=== PATIENT | female | born 1935 | race Two or more races ===

== ENCOUNTER 2022-08-31 07:01 | Inpatient (IN) | payer OTHER, MEDICAID ==
[2022-08-31] VITALS (30 sets, daily range): BP systolic 96–172; BP diastolic 29–163
[~2022-08-31] VITALS: Ht 152.4 cm; Wt 64.0 kg
[~2022-08-31 07:01] MED LIST: ACET-1080 PO; AMLO-483 PO; ASPI81CH59 PO; ATOR20TA PO; LEV50T PO; LIDO5DIS21 TOP; LISI20TA28 PO; MEMA1TAB5 PO
[2022-08-31] MEDS ORDERED: ceFAZolin 1GM/50ML 100 ML IV ONE (07:11)
[2022-08-31] MEDS ORDERED: LIDOCAINE 2% JELLY 11ml (GLYDO) ONE (07:49)
[2022-08-31] MEDS ORDERED: HYDROmorphone HCL 2 MG/ML VL/or syr ONE (08:00)
[2022-08-31] MEDS ORDERED: fentaNYL CITRATE 100 MCG/2 ML VL ONE ×2 (08:01→09:22)
[2022-08-31] MEDS ORDERED: MIDAZOLAM HCL 2MG/2ML 2ml VIAL (1mg/ml) ONE (08:01)
[2022-08-31] MEDS ORDERED: SUCCINYLCHOLINE CHLORIDE 20 MG/ML 10ML VIAL IV ONE (08:40)
[2022-08-31] MEDS ORDERED: PROPOFOL 10 MG/ML 20 ML IV ONE (09:16)
[2022-08-31] MEDS ORDERED: FLUMAZENIL 0.1 MG/ML INJ 10ML MDV IV ONE (09:22)
[2022-08-31] MEDS ORDERED: ROCURONIUM 10MG/ML 10ML VIAL IV ONE (09:23)
[2022-08-31] MEDS ORDERED: ONDANSETRON HCL 4 MG/2 ML VIAL IV PRN ×2 (10:30→12:30)
[2022-08-31] MEDS ORDERED: LABETALOL HCL 5 MG/ML 4ML SYRINGE IV PRN (10:30)
[2022-08-31] MEDS ORDERED: ePHEDrine SULFATE 50 MG/ML AMP IV PRN (10:30)
[2022-08-31] MEDS ORDERED: MORPHINE SULFATE 4 MG/ML SYR/VIAL IV PRN (10:30)
[2022-08-31] MEDS ORDERED: MIDAZOLAM HCL 2MG/2ML 2ml VIAL (1mg/ml) IV PRN (10:30)
[2022-08-31] MEDS ORDERED: HYDROmorphone HCL 2 MG/ML VL/or syr IV PRN (10:30)
[2022-08-31] MEDS ORDERED: GELATIN 1 SPONGE SIZE 100 TOP ONE (11:39)
[2022-08-31] MEDS ORDERED: SUGAMMADEX 200mg/2ml Vial (100MG/ML) IV ONE (11:56)
[2022-08-31] MEDS ORDERED: HYDROcodone-ACET 5/325MG TAB PO PRN (12:30)
[2022-08-31] MEDS ORDERED: NITROGLYCERIN 0.4 MG SL TAB SL PRN ×2 (12:30→16:15)
[2022-08-31] MEDS ORDERED: MORPHINE SULFATE INJ 2 MG/ml SYRG IV PRN ×3 (12:30→16:15)
[2022-08-31] MEDS ORDERED: HYDROcodone-ACET 10/325MG TAB PO ONE (15:25)
[2022-08-31] MEDS: D5W/SOD CHLO 0.9% 1,000 ML IV SCH (17:40)
[2022-08-31] MEDS: ceFAZolin 1GM/50ML 50 ML IV SCH ×2 (17:40→21:57)
[2022-08-31] MEDS: CYCLOBENZAPRINE HCL 10 MG TAB PO SCH ×2 (17:41→21:56)
[2022-08-31] MEDS: DOCUSATE SOD 100 MG CAP PO SCH (21:56)
[2022-09-01] VITALS (55 sets, daily range): BP systolic 82–130; BP diastolic 33–112
[2022-09-01] MEDS: D5W/SOD CHLO 0.9% 1,000 ML IV SCH ×3 (04:35→15:38)
[2022-09-01] MEDS: CYCLOBENZAPRINE HCL 10 MG TAB PO SCH ×3 (06:00→20:56)
[2022-09-01] MEDS: HYDROcodone-ACET 10/325MG TAB PO PRN ×2 (08:36→18:46)
[2022-09-01] MEDS: DOCUSATE SOD 100 MG CAP PO SCH ×2 (10:29→20:56)
[2022-09-01] MEDS: HYDROmorphone HCL 2 MG/ML VL/or syr IV PRN (14:14)
[2022-09-01 18:33] LABS: BUN/Creatinine Ratio 16.2 (10.0-20.0); Calcium 8.3 mg/dL (8.5-10.1); Potassium 4.5 mmol/L (3.5-5.1)
[2022-09-01 18:48] LABS: Basophils # (auto) 0 10 ^3/uL (0-0.2); Basophils % (auto) 0.1 % (0.0-2.0); Eosinophils # (auto) 0 10 ^3/uL (0-0.8); Hematocrit 27.5 % (36.0-46.0); Hemoglobin 9.1 g/dL (12.2-16.2); Lymphocytes # (auto) 1.1 10 ^3/uL (0.4-5.4); Lymphocytes % (auto) 8.1 % (10.0-50.0); Mean Corpuscular Hemoglobin 30.4 pg (28.0-32.0); Mean Corpuscular Volume 92.2 fL (80.0-100.0); Monocytes # (auto) 0.8 10 ^3/uL (0-1.3); Neutrophils # (auto) 11.9 10 ^3/uL (1.6-8.6); Neutrophils % (auto) 85.8 % (37.0-80.0); Red Blood Cells 2.98 10^6/uL (4.0-5.20); Red Cell Distribution Width 14.5 % (11.8-14.3); White Blood Cell 13.9 10^3/uL (4.4-10.8)
[2022-09-02 00:01] VITALS: BP 140/59
[2022-09-02] MEDS: HYDROcodone-ACET 10/325MG TAB PO PRN ×2 (02:51→17:05)
[2022-09-02] MEDS: D5W/SOD CHLO 0.9% 1,000 ML IV SCH ×2 (04:30→18:08)
[2022-09-02] MEDS: CYCLOBENZAPRINE HCL 10 MG TAB PO SCH ×4 (05:05→21:57)
[2022-09-02 08:00] VITALS: BP 124/55
[2022-09-02 09:21] VITALS: BP 124/55
[2022-09-02] MEDS: DOCUSATE SOD 100 MG CAP PO SCH ×2 (09:22→22:00)
[2022-09-02] MEDS: ACETAMINOPHEN 325 MG TAB PO PRN ×4 (09:23→22:03)
[2022-09-02] MEDS: HYDROmorphone HCL 2 MG/ML VL/or syr IV PRN ×2 (09:30→20:19)
[2022-09-02 12:00] VITALS: BP 139/57
[2022-09-02 15:52] LABS: Calcium 8.7 mg/dL (8.5-10.1); Potassium 3.8 mmol/L (3.5-5.1)
[2022-09-02 15:54] LABS: BUN/Creatinine Ratio 14.5 (10.0-20.0)
[2022-09-02 16:00] VITALS: BP 123/46
[2022-09-02 16:46] LABS: Basophils # (auto) 0 10 ^3/uL (0-0.2); Basophils % (auto) 0.2 % (0.0-2.0); Eosinophils # (auto) 0 10 ^3/uL (0-0.8); Eosinophils % (auto) 0.3 % (0.0-7.0); Hematocrit 30.2 % (36.0-46.0); Hemoglobin 9.9 g/dL (12.2-16.2); Lymphocytes # (auto) 0.8 10 ^3/uL (0.4-5.4); Mean Corpuscular Hemoglobin 30.4 pg (28.0-32.0); Mean Corpuscular Hgb Conc. 32.7 g/dL (32.0-36.0); Monocytes # (auto) 0.8 10 ^3/uL (0-1.3); Monocytes % (auto) 6.7 % (0.0-12.0); Neutrophils # (auto) 10.3 10 ^3/uL (1.6-8.6); Neutrophils % (auto) 85.8 % (37.0-80.0); Nucleated Red Blood Cells % 0.1 %; Red Blood Cells 3.25 10^6/uL (4.0-5.20); Red Cell Distribution Width 15.1 % (11.8-14.3)
[2022-09-02 20:00] VITALS: BP 105/50
[2022-09-03] VITALS (8 sets, daily range): BP systolic 91–125; BP diastolic 24–49
[2022-09-03] MEDS: HYDROcodone-ACET 10/325MG TAB PO PRN ×3 (02:14→18:54)
[2022-09-03] MEDS: D5W/SOD CHLO 0.9% 1,000 ML IV SCH ×3 (04:11→21:42)
[2022-09-03] MEDS: ACETAMINOPHEN 325 MG TAB PO PRN ×3 (05:19→21:43)
[2022-09-03] MEDS: CYCLOBENZAPRINE HCL 10 MG TAB PO SCH ×3 (05:21→21:43)
[2022-09-03] MEDS: DOCUSATE SOD 100 MG CAP PO SCH ×2 (09:41→21:42)
[2022-09-03] MEDS: HYDROmorphone HCL 2 MG/ML VL/or syr IV PRN (10:24)
[2022-09-03] MEDS ORDERED: SODIUM CHLORIDE 0.9% 1,000 ML IV ONE (14:45)
[2022-09-03] MEDS: amLODIPine BESYLATE 5 MG TAB PO SCH (18:00)
[2022-09-03] MEDS: MEMANTINE HCL 5 MG TAB PO SCH (21:43)
[2022-09-04] VITALS: BP 101/39
[2022-09-04] MEDS: HYDROcodone-ACET 10/325MG TAB PO PRN ×4 (00:55→23:25)
[2022-09-04 04:00] VITALS: BP 108/62
[2022-09-04] MEDS: ACETAMINOPHEN 325 MG TAB PO PRN ×3 (04:35→21:01)
[2022-09-04 05:40] LABS: Basophils # (auto) 0 10 ^3/uL (0-0.2); Eosinophils # (auto) 0.1 10 ^3/uL (0-0.8); Monocytes # (auto) 0.8 10 ^3/uL (0-1.3); White Blood Cell 11.6 10^3/uL (4.4-10.8)
[2022-09-04 05:42] LABS: Basophils % (auto) 0.2 % (0.0-2.0); Eosinophils % (auto) 0.7 % (0.0-7.0); Hematocrit 25.1 % (36.0-46.0); Hemoglobin 8.4 g/dL (12.2-16.2); Lymphocytes # (auto) 1.1 10 ^3/uL (0.4-5.4); Lymphocytes % (auto) 9.3 % (10.0-50.0); Mean Corpuscular Hemoglobin 30.8 pg (28.0-32.0); Mean Corpuscular Hgb Conc. 33.4 g/dL (32.0-36.0); Mean Corpuscular Volume 92.2 fL (80.0-100.0); Monocytes % (auto) 6.7 % (0.0-12.0); Neutrophils # (auto) 9.6 10 ^3/uL (1.6-8.6); Neutrophils % (auto) 83.1 % (37.0-80.0); Red Blood Cells 2.72 10^6/uL (4.0-5.20); Red Cell Distribution Width 14.2 % (11.8-14.3)
[2022-09-04 05:51] LABS: Calcium 7.1 mg/dL (8.5-10.1); Potassium 3.2 mmol/L (3.5-5.1)
[2022-09-04 05:55] LABS: BUN/Creatinine Ratio 12.5 (10.0-20.0); Bilirubin, Total 0.7 mg/dL (0.2-1.0); Total Protein 4.8 g/dL (6.4-8.2)
[2022-09-04] MEDS: CYCLOBENZAPRINE HCL 10 MG TAB PO SCH ×3 (05:57→23:24)
[2022-09-04] MEDS: D5W/SOD CHLO 0.9% 1,000 ML IV SCH ×2 (06:30→08:11)
[2022-09-04] MEDS: LEVOTHYROXINE SODIUM 50 MCG TAB PO SCH (06:42)
[2022-09-04 08:00] VITALS: BP 107/40
[2022-09-04] MEDS: LISINOPRIL 20 MG TAB PO SCH (10:00)
[2022-09-04] MEDS: ASPirin 81 mg TAB PO SCH (10:06)
[2022-09-04] MEDS: DOCUSATE SOD 100 MG CAP PO SCH ×2 (10:06→23:24)
[2022-09-04] MEDS: ATORVASTATIN 20 MG TAB PO SCH (10:06)
[2022-09-04] MEDS: MEMANTINE HCL 5 MG TAB PO SCH ×2 (10:07→23:24)
[2022-09-04 12:00] VITALS: BP 112/46
[2022-09-04] MEDS: POTASSIUM CHL 20MEQ/100ML 100 ML IV SCH ×2 (12:11→14:24)
[2022-09-04 16:00] VITALS: BP 116/38
[2022-09-04] MEDS: amLODIPine BESYLATE 5 MG TAB PO SCH (18:00)
[2022-09-04 20:00] VITALS: BP 111/31
[2022-09-04] MEDS: guaiFENesin-DM 100/10mg/5ml SYR PO PRN (21:01)
[2022-09-05] MEDS: D5W/SOD CHLO 0.9% 1,000 ML IV SCH ×3 (03:38→17:36)
[2022-09-05] MEDS: guaiFENesin-DM 100/10mg/5ml SYR PO PRN ×2 (03:38→18:31)
[2022-09-05 04:00] VITALS: BP 142/49
[2022-09-05 05:34] LABS: Basophils # (auto) 0 10 ^3/uL (0-0.2); Basophils % (auto) 0.3 % (0.0-2.0); Eosinophils # (auto) 0.2 10 ^3/uL (0-0.8); Eosinophils % (auto) 1.6 % (0.0-7.0); Hematocrit 26.8 % (36.0-46.0); Hemoglobin 8.9 g/dL (12.2-16.2); Lymphocytes % (auto) 8.9 % (10.0-50.0); Mean Corpuscular Hemoglobin 31.4 pg (28.0-32.0); Mean Corpuscular Hgb Conc. 33.3 g/dL (32.0-36.0); Mean Corpuscular Volume 94.4 fL (80.0-100.0); Monocytes # (auto) 0.8 10 ^3/uL (0-1.3); Neutrophils # (auto) 9.6 10 ^3/uL (1.6-8.6); Neutrophils % (auto) 82.2 % (37.0-80.0); Red Blood Cells 2.84 10^6/uL (4.0-5.20); Red Cell Distribution Width 14.1 % (11.8-14.3); White Blood Cell 11.6 10^3/uL (4.4-10.8)
[2022-09-05 05:37] LABS: Potassium 3.8 mmol/L (3.5-5.1)
[2022-09-05 05:42] LABS: BUN/Creatinine Ratio 11.1 (10.0-20.0); Calcium 7.9 mg/dL (8.5-10.1)
[2022-09-05] MEDS: LEVOTHYROXINE SODIUM 50 MCG TAB PO SCH (06:58)
[2022-09-05] MEDS: CYCLOBENZAPRINE HCL 10 MG TAB PO SCH (08:11)
[2022-09-05] MEDS: DOCUSATE SOD 100 MG CAP PO SCH (10:00)
[2022-09-05] MEDS: ACETAMINOPHEN 325 MG TAB PO PRN (10:26)
[2022-09-05] MEDS: LISINOPRIL 20 MG TAB PO SCH ×2 (10:27→10:56)
[2022-09-05] MEDS: ASPirin 81 mg TAB PO SCH ×2 (10:28→10:55)
[2022-09-05] MEDS: MEMANTINE HCL 5 MG TAB PO SCH ×2 (10:55→20:52)
[2022-09-05] MEDS: ATORVASTATIN 20 MG TAB PO SCH (10:55)
[2022-09-05 12:00] VITALS: BP 125/45
[2022-09-05] MEDS ORDERED: ACETAMINOPHEN 650 mg PER 20.3 mL UD ONE (12:11)
[2022-09-05] MEDS: ACETAMINOPHEN 650 mg PER 20.3 mL UD PO PRN (12:17)
[2022-09-05] MEDS: HYDROcodone-ACET 5/325MG TAB PO PRN ×3 (14:05→22:13)
[2022-09-05 16:00] VITALS: BP 124/38
[2022-09-05 18:00] VITALS: BP 125/37
[2022-09-05] MEDS: amLODIPine BESYLATE 5 MG TAB PO SCH (18:00)
[2022-09-05 20:00] VITALS: BP 134/47
[2022-09-05] MEDS: DOCUSATE ORAL LIQUID 100 MG/10 ML UD PO SCH (20:52)
[2022-09-06] VITALS: BP 127/39
[2022-09-06] MEDS: HYDROcodone-ACET 5/325MG TAB PO PRN ×3 (04:11→20:30)
[2022-09-06 05:07] LABS: Basophils # (auto) 0.1 10 ^3/uL (0-0.2); Basophils % (auto) 0.5 % (0.0-2.0); Eosinophils # (auto) 0.1 10 ^3/uL (0-0.8); Eosinophils % (auto) 1.4 % (0.0-7.0); Hematocrit 26.4 % (36.0-46.0); Hemoglobin 8.7 g/dL (12.2-16.2); Lymphocytes # (auto) 1.3 10 ^3/uL (0.4-5.4); Lymphocytes % (auto) 12.8 % (10.0-50.0); Mean Corpuscular Hemoglobin 30.5 pg (28.0-32.0); Mean Corpuscular Hgb Conc. 33.1 g/dL (32.0-36.0); Mean Corpuscular Volume 92.1 fL (80.0-100.0); Monocytes # (auto) 0.8 10 ^3/uL (0-1.3); Monocytes % (auto) 8.1 % (0.0-12.0); Neutrophils # (auto) 8.1 10 ^3/uL (1.6-8.6); Neutrophils % (auto) 77.2 % (37.0-80.0); Nucleated Red Blood Cells % 0.1 %; Red Blood Cells 2.86 10^6/uL (4.0-5.20); Red Cell Distribution Width 14.2 % (11.8-14.3); White Blood Cell 10.5 10^3/uL (4.4-10.8)
[2022-09-06 05:28] LABS: Calcium 8.3 mg/dL (8.5-10.1); Magnesium 2.2 mg/dL (1.6-2.6); Potassium 3.4 mmol/L (3.5-5.1)
[2022-09-06 05:30] LABS: BUN/Creatinine Ratio 12.8 (10.0-20.0)
[2022-09-06] MEDS: LEVOTHYROXINE SODIUM 50 MCG TAB PO SCH (05:55)
[2022-09-06] MEDS: D5W/SOD CHLO 0.9% 1,000 ML IV SCH ×2 (07:40→11:50)
[2022-09-06 08:00] VITALS: BP 142/55
[2022-09-06] MEDS: guaiFENesin-DM 100/10mg/5ml SYR PO PRN ×3 (08:35→22:18)
[2022-09-06] MEDS: MEMANTINE HCL 5 MG TAB PO SCH ×2 (10:01→22:15)
[2022-09-06] MEDS: ATORVASTATIN 20 MG TAB PO SCH (10:01)
[2022-09-06] MEDS: ACETAMINOPHEN 650 mg PER 20.3 mL UD PO PRN ×3 (10:02→23:43)
[2022-09-06] MEDS: LISINOPRIL 20 MG TAB PO SCH (10:02)
[2022-09-06] MEDS: ASPirin 81 mg TAB PO SCH (10:02)
[2022-09-06] MEDS: DOCUSATE ORAL LIQUID 100 MG/10 ML UD PO SCH ×2 (10:02→22:15)
[2022-09-06] MEDS ORDERED: ENOXAPARIN SOD 40 MG/0.4 ML SYRINGE SC ONE (11:30)
[2022-09-06] MEDS: AZITHROMYCIN 250 MG TAB PO SCH (11:49)
[2022-09-06 12:00] VITALS: BP 124/41
[2022-09-06 16:00] VITALS: BP 129/52
[2022-09-06] MEDS: amLODIPine BESYLATE 5 MG TAB PO SCH (17:09)
[2022-09-06] MEDS ORDERED: DexAMETHasone SOD PHOS 10MG/1ML VIAL INJ IV ONE (17:30)
[2022-09-06] MEDS ORDERED: NALOXONE HCL 1MG/ML 2ML SYRINGE IV ONE (17:30)
[2022-09-06 20:00] VITALS: BP 149/55
[2022-09-06] MEDS ORDERED: LORazepam 2MG/ML-1ML VIAL IV PRN (21:30)
[2022-09-06] MEDS: ALBUTEROL SULF 2.5 MG/0.5ML(0.5%) NEB SOLN NEB SCH (21:31)
[2022-09-06 22:00] VITALS: BP 147/100
[2022-09-06] MEDS ORDERED: DONEPEZIL HYDROCHLORIDE 5 MG TAB PO SCH (22:00)
[2022-09-06] MEDS: LACTULOSE 20Gm/30ML SOLN PO SCH (22:15)
[2022-09-07] VITALS (17 sets, daily range): BP systolic 120–161; BP diastolic 34–78
[2022-09-07] MEDS: ALBUTEROL SULF 2.5 MG/0.5ML(0.5%) NEB SOLN NEB SCH ×2 (00:05→10:30)
[2022-09-07] MEDS: ACETAMINOPHEN 650 mg PER 20.3 mL UD PO PRN ×3 (05:26→21:20)
[2022-09-07] MEDS: LACTULOSE 20Gm/30ML SOLN PO SCH (06:00)
[2022-09-07 06:15] LABS: Folate (Folic Acid) > 24.00 ng/mL (5.38-24)
[2022-09-07] MEDS: LEVOTHYROXINE SODIUM 50 MCG TAB PO SCH (07:29)
[2022-09-07] MEDS: HYDROcodone-ACET 5/325MG TAB PO PRN ×3 (07:35→23:00)
[2022-09-07] MEDS: ATORVASTATIN 20 MG TAB PO SCH (09:55)
[2022-09-07] MEDS: ASPirin 81 mg TAB PO SCH (09:55)
[2022-09-07] MEDS: LISINOPRIL 20 MG TAB PO SCH (09:55)
[2022-09-07] MEDS: DOCUSATE ORAL LIQUID 100 MG/10 ML UD PO SCH ×2 (09:56→21:21)
[2022-09-07] MEDS: AZITHROMYCIN 250 MG TAB PO SCH (09:56)
[2022-09-07] MEDS: MEMANTINE HCL 5 MG TAB PO SCH ×2 (09:56→21:21)
[2022-09-07] MEDS ORDERED: ENOXAPARIN SOD 40 MG/0.4 ML SYRINGE SC SCH (10:00)
[2022-09-07 11:19] LABS: Hematocrit 34.2 % (36.0-46.0); Hemoglobin 11.1 g/dL (12.2-16.2)
[2022-09-07] MEDS ORDERED: POTASSIUM CHL 20MEQ/100ML 100 ML IV ONE (15:30)
[2022-09-07] MEDS ORDERED: LACTULOSE 20Gm/30ML SOLN PO PRN ×2 (17:15→18:30)
[2022-09-07] MEDS: D5W/SOD CHLO 0.9% 1,000 ML IV SCH (17:23)
[2022-09-07] MEDS: amLODIPine BESYLATE 5 MG TAB PO SCH (18:00)
[2022-09-08] VITALS (7 sets, daily range): BP systolic 122–162; BP diastolic 30–56
[2022-09-08] MEDS: ACETAMINOPHEN 650 mg PER 20.3 mL UD PO PRN ×3 (01:45→21:14)
[2022-09-08 05:29] LABS: Calcium 8.5 mg/dL (8.5-10.1); Magnesium 2.1 mg/dL (1.6-2.6)
[2022-09-08 05:44] LABS: Potassium 2.9 mmol/L (3.5-5.1)
[2022-09-08] MEDS: guaiFENesin-DM 100/10mg/5ml SYR PO PRN ×2 (08:54)
[2022-09-08] MEDS: HYDROcodone-ACET 5/325MG TAB PO PRN ×4 (09:19→23:27)
[2022-09-08] MEDS: D5W/SOD CHLO 0.9% 1,000 ML IV SCH (09:40)
[2022-09-08] MEDS: DOCUSATE ORAL LIQUID 100 MG/10 ML UD PO SCH ×2 (10:00→21:36)
[2022-09-08] MEDS ORDERED: LACTULOSE 20Gm/30ML SOLN PO SCH (10:00)
[2022-09-08] MEDS: ALBUTEROL SULF 2.5 MG/0.5ML(0.5%) NEB SOLN NEB SCH ×2 (10:19→22:06)
[2022-09-08] MEDS: AZITHROMYCIN 250 MG TAB PO SCH (10:25)
[2022-09-08] MEDS: LISINOPRIL 20 MG TAB PO SCH (10:25)
[2022-09-08] MEDS: MEMANTINE HCL 5 MG TAB PO SCH ×2 (10:28→21:36)
[2022-09-08] MEDS: ATORVASTATIN 20 MG TAB PO SCH (10:28)
[2022-09-08] MEDS: ASPirin 81 mg TAB PO SCH (10:28)
[2022-09-08] MEDS ORDERED: POTASSIUM CHLORIDE 40 MEQ, LIDOCAINE 1% (LOCAL ANESTH.) 4 ML in SODIUM CHL 0.9% 250 ML IV ONE (12:15)
[2022-09-08] MEDS ORDERED: POTASSIUM EFFERVESENT TAB 25 MEQ PO ONE (12:15)
[2022-09-08] MEDS: amLODIPine BESYLATE 5 MG TAB PO SCH (18:27)
[2022-09-09] VITALS: BP 157/64
[2022-09-09] MEDS: D5W/SOD CHLO 0.9% 1,000 ML IV SCH (02:20)
[2022-09-09] MEDS: HYDROcodone-ACET 5/325MG TAB PO PRN ×2 (03:27→07:16)
[2022-09-09 04:00] VITALS: BP 151/71
[2022-09-09] MEDS: guaiFENesin-DM 100/10mg/5ml SYR PO PRN ×2 (04:17→10:47)
[2022-09-09] MEDS: ACETAMINOPHEN 650 mg PER 20.3 mL UD PO PRN (04:17)
[2022-09-09 05:11] LABS: Calcium 8.8 mg/dL (8.5-10.1); Potassium 3.7 mmol/L (3.5-5.1)
[2022-09-09] MEDS: LEVOTHYROXINE SODIUM 50 MCG TAB PO SCH ×2 (06:18→06:20)
[2022-09-09 08:00] VITALS: BP 133/49
[2022-09-09] MEDS: DOCUSATE ORAL LIQUID 100 MG/10 ML UD PO SCH (10:00)
[2022-09-09] MEDS: ASPirin 81 mg TAB PO SCH (10:29)
[2022-09-09] MEDS: ATORVASTATIN 20 MG TAB PO SCH (10:29)
[2022-09-09] MEDS: MEMANTINE HCL 5 MG TAB PO SCH (10:30)
[2022-09-09] MEDS: LISINOPRIL 20 MG TAB PO SCH (10:32)
[2022-09-09] MEDS: AZITHROMYCIN 250 MG TAB PO SCH (10:33)
[2022-09-09] MEDS: ALBUTEROL SULF 2.5 MG/0.5ML(0.5%) NEB SOLN NEB SCH (11:21)
[2022-09-09] MEDS ORDERED: KETOROLAC TROMETH 30 MG/ML 1ML VIAL IV PRN (11:30)
[2022-09-09 12:00] VITALS: BP 138/60
[2022-09-09 15:47] VITALS: BP 131/58
[2022-09-09 16:00] VITALS: BP 129/61
[2022-09-14] MEDS ORDERED: ACET-1156 PO (00:53)
== END 2022-09-09 19:32 | DRG 459 ==
LOC: SUR 07:01 → TELE 12:24 → DOU IN ICU 16:04
PROVIDERS: ADMIT Orthopaedic Surgery; ATTEND Hospitalist
PROC: 0SW004Z Revision of Internal Fixation Device in Lumbar Vertebral Joint, Open Approach (ICD-10-PCS; principal; 2022-09-02)
PROC: 01NB0ZZ Release Lumbar Nerve, Open Approach (ICD-10-PCS; 2022-09-02)
PROC: 0SG00AJ Fusion of Lumbar Vertebral Joint with Interbody Fusion Device, Posterior Approach, Anterior Column, Open Approach (ICD-10-PCS; 2022-09-02)
PROC: 4A00X4Z Measurement of Central Nervous Electrical Activity, External Approach (ICD-10-PCS; 2022-09-07)
PROC: 30233N1 Transfusion of Nonautologous Red Blood Cells into Peripheral Vein, Percutaneous Approach (ICD-10-PCS; 2022-09-07)
PROC: 05HF33Z Insertion of Infusion Device into Left Cephalic Vein, Percutaneous Approach (ICD-10-PCS; 2022-09-08)
PROC: B54NZZA Ultrasonography of Left Upper Extremity Veins, Guidance (ICD-10-PCS; 2022-09-08)
DX: M96.1 Postlaminectomy syndrome, not elsewhere classified (principal); G92.8 Other toxic encephalopathy; D62 Acute posthemorrhagic anemia; M48.062 Spinal stenosis, lumbar region with neurogenic claudication; M43.16 Spondylolisthesis, lumbar region; E03.9 Hypothyroidism, unspecified; E78.5 Hyperlipidemia, unspecified; G89.29 Other chronic pain; I10 Essential (primary) hypertension; E87.6 Hypokalemia; F02.80 Dementia in other diseases classified elsewhere, unspecified severity, without behavioral disturbance, psychotic disturbance, mood disturbance, and anxiety; G30.9 Alzheimer's disease, unspecified; Z79.899 Other long term (current) drug therapy; Z88.2 Allergy status to sulfonamides; Z83.3 Family history of diabetes mellitus; Z81.8 Family history of other mental and behavioral disorders
CPT/HCPCS: 36415; 36600; 70450; 71045; 72100; 76000; 80048; 80053; 82140; 82607; 82746; 82805; 83735; 84443; 85014; 85018; 85025; 86850; 86900; 86901; 86920; 87081; 94640; 95819; 97110; 97116; 97163; 97530; G0378; J0330; J0690; J1100; J1885; J2001; J2250; J2405; J2704; J3480; J7042

== ENCOUNTER 2022-09-13 12:55 | Inpatient (IN) | payer OTHER, MEDICAID ==
[~2022-09-13] VITALS: Ht 167.6 cm; Wt 53.9 kg
[~2022-09-13 12:55] MED LIST changes: -AMLO-483 PO; +AMLO1TAB21 PO; -LISI20TA28 PO; +LISI20TA56 PO
[2022-09-13 13:36] LABS: Basophils # (auto) 0.2 10 ^3/uL (0-0.2); Eosinophils # (auto) 0 10 ^3/uL (0-0.8); Hemoglobin 10.7 g/dL (12.2-16.2)
[2022-09-13 13:37] LABS: Basophils % (auto) 0.8 % (0.0-2.0); Eosinophils % (auto) 0.1 % (0.0-7.0); Hematocrit 31.9 % (36.0-46.0); Lymphocytes # (auto) 1.8 10 ^3/uL (0.4-5.4); Lymphocytes % (auto) 9.4 % (10.0-50.0); Mean Corpuscular Hemoglobin 29.3 pg (28.0-32.0); Mean Corpuscular Hgb Conc. 33.4 g/dL (32.0-36.0); Mean Corpuscular Volume 87.8 fL (80.0-100.0); Monocytes # (auto) 1.4 10 ^3/uL (0-1.3); Monocytes % (auto) 7.1 % (0.0-12.0); Neutrophils # (auto) 15.7 10 ^3/uL (1.6-8.6); Neutrophils % (auto) 82.6 % (37.0-80.0); Red Blood Cells 3.64 10^6/uL (4.0-5.20); Red Cell Distribution Width 14.5 % (11.8-14.3)
[2022-09-13 13:55] LABS: Albumin 2.3 g/dL (3.4-5.0); Calcium 8.6 mg/dL (8.5-10.1); Potassium 3.8 mmol/L (3.5-5.1)
[2022-09-13 13:58] LABS: BUN/Creatinine Ratio 14.1 (10.0-20.0); Bilirubin, Total 0.8 mg/dL (0.2-1.0); Total Protein 7.2 g/dL (6.4-8.2)
[2022-09-13 14:21] LABS: Urine Bacteria NONE SEEN /hpf (None Seen); Urine Blood Negative /uL (Negative); Urine Specific Gravity 1.015 (1.001-1.035); Urine WBC 3 /hpf (0 - 5)
[2022-09-13] MEDS ORDERED: cefTRIAXone 1GM/50ML D5W 50 ML IV ONE (14:45)
[2022-09-13] MEDS ORDERED: AZITHROMYCIN 500MG/ 250ML 250 ML IV ONE (14:45)
[2022-09-13] MEDS ORDERED: SODIUM CHLORIDE 0.9% 1,000 ML IV ONE ×2 (14:45→19:15)
[2022-09-13] MEDS ORDERED: SODIUM CHLORIDE 0.9% 1,000 ML IV SCH (19:00)
[2022-09-13] MEDS ORDERED: NITROGLYCERIN 0.4 MG SL TAB SL PRN (19:00)
[2022-09-13] MEDS ORDERED: ACETAMINOPHEN 325 MG TAB PO PRN (19:00)
[2022-09-13] MEDS ORDERED: MORPHINE SULFATE INJ 2 MG/ml SYRG IV PRN (19:00)
[2022-09-13] MEDS ORDERED: METHOCARBAMOL 500 MG TAB PO PRN (19:15)
[2022-09-13] MEDS: ACETAMINOPHEN 650 mg PER 20.3 mL UD PO PRN (20:24)
[2022-09-13] MEDS ORDERED: ACETAMINOPHEN 650 MG PO SCH (22:00)
[2022-09-13] MEDS: MEMANTINE HCL 5 MG TAB PO SCH (22:05)
[2022-09-14 00:53] LABS: Basophils # (auto) 0.1 10 ^3/uL (0-0.2); Basophils % (auto) 0.7 % (0.0-2.0); Eosinophils # (auto) 0 10 ^3/uL (0-0.8); Eosinophils % (auto) 0.3 % (0.0-7.0); Hematocrit 27.9 % (36.0-46.0); Hemoglobin 9.4 g/dL (12.2-16.2); Lymphocytes # (auto) 1.4 10 ^3/uL (0.4-5.4); Lymphocytes % (auto) 8.2 % (10.0-50.0); Mean Corpuscular Hemoglobin 30.2 pg (28.0-32.0); Mean Corpuscular Hgb Conc. 33.6 g/dL (32.0-36.0); Mean Corpuscular Volume 89.9 fL (80.0-100.0); Monocytes % (auto) 5.9 % (0.0-12.0); Neutrophils # (auto) 14.9 10 ^3/uL (1.6-8.6); Neutrophils % (auto) 84.9 % (37.0-80.0); Nucleated Red Blood Cells % 0.1 %; Red Cell Distribution Width 14.4 % (11.8-14.3); White Blood Cell 17.5 10^3/uL (4.4-10.8)
[2022-09-14] MEDS ORDERED: ACET-1881 PO (00:53)
[2022-09-14] MEDS ORDERED: cloNIDine HCL 0.1 MG TAB PO ONE (02:30)
[2022-09-14] MEDS: ACETAMINOPHEN 650 mg PER 20.3 mL UD PO PRN ×3 (03:07→18:36)
[2022-09-14 05:00] VITALS: BP 128/48
[2022-09-14 05:07] LABS: Basophils # (auto) 0 10 ^3/uL (0-0.2); Basophils % (auto) 0.2 % (0.0-2.0); Eosinophils # (auto) 0.1 10 ^3/uL (0-0.8); Eosinophils % (auto) 0.4 % (0.0-7.0); Hematocrit 26.3 % (36.0-46.0); Hemoglobin 8.9 g/dL (12.2-16.2); Lymphocytes # (auto) 1.1 10 ^3/uL (0.4-5.4); Lymphocytes % (auto) 7.5 % (10.0-50.0); Mean Corpuscular Hemoglobin 29.5 pg (28.0-32.0); Mean Corpuscular Hgb Conc. 33.6 g/dL (32.0-36.0); Mean Corpuscular Volume 87.7 fL (80.0-100.0); Monocytes # (auto) 0.9 10 ^3/uL (0-1.3); Monocytes % (auto) 6.4 % (0.0-12.0); Neutrophils # (auto) 12.4 10 ^3/uL (1.6-8.6); Neutrophils % (auto) 85.5 % (37.0-80.0); Red Cell Distribution Width 14.5 % (11.8-14.3); White Blood Cell 14.5 10^3/uL (4.4-10.8)
[2022-09-14 05:31] LABS: Albumin 1.6 g/dL (3.4-5.0); BUN/Creatinine Ratio 17.4 (10.0-20.0); Calcium 7.9 mg/dL (8.5-10.1)
[2022-09-14 05:34] LABS: Bilirubin, Total 0.4 mg/dL (0.2-1.0); Total Protein 5.7 g/dL (6.4-8.2)
[2022-09-14] MEDS: LEVOTHYROXINE SODIUM 50 MCG TAB PO SCH (06:12)
[2022-09-14] MEDS ORDERED: ARTISOL13 EACHEYE (08:24)
[2022-09-14] MEDS: cefTRIAXone 1GM/50ML D5W 50 ML IV SCH (08:56)
[2022-09-14 09:00] VITALS: BP 154/58
[2022-09-14] MEDS: AZITHROMYCIN 500MG/ 250ML 250 ML IV SCH (11:06)
[2022-09-14] MEDS: DOCUSATE ORAL LIQUID 100 MG/10 ML UD GT SCH (11:06)
[2022-09-14] MEDS: LISINOPRIL 20 MG TAB PO SCH (11:06)
[2022-09-14] MEDS: MEMANTINE HCL 5 MG TAB PO SCH ×2 (11:07→22:01)
[2022-09-14] MEDS: ENOXAPARIN SOD 40 MG/0.4 ML SYRINGE SC SCH (11:07)
[2022-09-14] MEDS: ASPirin-EC 81 mg tab PO SCH (11:07)
[2022-09-14] MEDS: ATORVASTATIN 20 MG TAB PO SCH (11:07)
[2022-09-14 13:00] VITALS: BP 133/57
[2022-09-14] MEDS ORDERED: MILK OF MAGNESIA 30ML SUSP PO ONE (14:00)
[2022-09-14] MEDS ORDERED: FLEET ENEMA(ADULT) 135 ML PR ONE (14:00)
[2022-09-14] MEDS: POTASSIUM CHL 20MEQ/100ML 100 ML IV SCH ×2 (14:25→18:01)
[2022-09-14] MEDS: amLODIPine BESYLATE 5 MG TAB PO SCH (14:27)
[2022-09-14] MEDS: SODIUM CHLORIDE 0.9% 1,000 ML IV SCH (14:28)
[2022-09-14 17:00] VITALS: BP 150/67
[2022-09-14] MEDS ORDERED: amLODIPine BESYLATE 5 MG TAB PO SCH (18:00)
[2022-09-14] MEDS: ARTIFICIAL TEARS 15ml EACHEYE SCH ×2 (18:06→22:01)
[2022-09-14] MEDS: Ensure Enlive Strawberry 8oz Bottle PO SCH (18:06)
[2022-09-14 20:26] VITALS: BP 133/46
[2022-09-15] MEDS: SODIUM CHLORIDE 0.9% 1,000 ML IV SCH ×2 (01:12→09:21)
[2022-09-15] MEDS: ACETAMINOPHEN 650 mg PER 20.3 mL UD PO PRN ×2 (01:12→09:19)
[2022-09-15 05:37] VITALS: BP 150/65
[2022-09-15] MEDS: LEVOTHYROXINE SODIUM 50 MCG TAB PO SCH (06:03)
[2022-09-15] MEDS: ARTIFICIAL TEARS 15ml EACHEYE SCH ×4 (06:07→21:54)
[2022-09-15 06:38] LABS: BUN/Creatinine Ratio 16.1 (10.0-20.0); Calcium 8.2 mg/dL (8.5-10.1); Potassium 3.1 mmol/L (3.5-5.1)
[2022-09-15 06:45] LABS: Eosinophils # (auto) 0.1 10 ^3/uL (0-0.8); Hematocrit 29.4 % (36.0-46.0); Hemoglobin 9.8 g/dL (12.2-16.2); Lymphocytes # (auto) 1.2 10 ^3/uL (0.4-5.4); Mean Corpuscular Hemoglobin 29.4 pg (28.0-32.0); Mean Corpuscular Hgb Conc. 33.4 g/dL (32.0-36.0); Neutrophils % (auto) 85.3 % (37.0-80.0)
[2022-09-15 06:48] LABS: Basophils # (auto) 0.1 10 ^3/uL (0-0.2); Basophils % (auto) 0.4 % (0.0-2.0); Eosinophils % (auto) 0.7 % (0.0-7.0); Lymphocytes % (auto) 9.6 % (10.0-50.0); Mean Corpuscular Volume 87.9 fL (80.0-100.0); Monocytes # (auto) 0.5 10 ^3/uL (0-1.3); Nucleated Red Blood Cells % 0.1 %; Red Blood Cells 3.35 10^6/uL (4.0-5.20); Red Cell Distribution Width 14.6 % (11.8-14.3); White Blood Cell 12.9 10^3/uL (4.4-10.8)
[2022-09-15] MEDS ORDERED: POTASSIUM CHLORIDE IV ONE (08:15)
[2022-09-15] MEDS: LISINOPRIL 20 MG TAB PO SCH (09:18)
[2022-09-15] MEDS: ATORVASTATIN 20 MG TAB PO SCH (09:18)
[2022-09-15] MEDS: amLODIPine BESYLATE 5 MG TAB PO SCH (09:19)
[2022-09-15] MEDS: ASPirin-EC 81 mg tab PO SCH (09:19)
[2022-09-15] MEDS: DOCUSATE ORAL LIQUID 100 MG/10 ML UD GT SCH (09:19)
[2022-09-15] MEDS: MEMANTINE HCL 5 MG TAB PO SCH ×2 (09:19→21:53)
[2022-09-15] MEDS: cefTRIAXone 1GM/50ML D5W 50 ML IV SCH (09:20)
[2022-09-15] MEDS: Ensure Enlive Strawberry 8oz Bottle PO SCH ×3 (09:20→18:24)
[2022-09-15] MEDS: ENOXAPARIN SOD 40 MG/0.4 ML SYRINGE SC SCH (09:21)
[2022-09-15] MEDS ORDERED: ACETAMINOPHEN 650 mg PER 20.3 mL UD GT PRN (10:45)
[2022-09-15] MEDS ORDERED: ACETAMINOPHEN 650 mg PER 20.3 mL UD PO SCH (11:00)
[2022-09-15] MEDS: AZITHROMYCIN 500MG/ 250ML 250 ML IV SCH (11:10)
[2022-09-15] MEDS: HYDROcodone-ACET 5/325MG TAB PO PRN ×2 (15:47→22:07)
[2022-09-15] MEDS ORDERED: GADOTERATE MEG 10 MMOL/20ml INJ (0.5MMOL/ml) IV ONE (16:35)
[2022-09-15] MEDS: ERGOCALCIFEROL 50,000 UNIT(1.25MG) CAP PO SCH (18:24)
[2022-09-15 22:00] VITALS: BP 149/63
[2022-09-16 05:00] VITALS: BP 146/68
[2022-09-16 05:54] LABS: Basophils # (auto) 0 10 ^3/uL (0-0.2); Basophils % (auto) 0.3 % (0.0-2.0); Hemoglobin 9.8 g/dL (12.2-16.2); Lymphocytes # (auto) 1.3 10 ^3/uL (0.4-5.4); Monocytes # (auto) 0.8 10 ^3/uL (0-1.3); Monocytes % (auto) 5.4 % (0.0-12.0); Red Cell Distribution Width 14.5 % (11.8-14.3); White Blood Cell 13.9 10^3/uL (4.4-10.8)
[2022-09-16 05:56] LABS: Eosinophils # (auto) 0.1 10 ^3/uL (0-0.8); Eosinophils % (auto) 0.5 % (0.0-7.0); Hematocrit 29.1 % (36.0-46.0); Lymphocytes % (auto) 9.3 % (10.0-50.0); Mean Corpuscular Hemoglobin 29.6 pg (28.0-32.0); Mean Corpuscular Hgb Conc. 33.5 g/dL (32.0-36.0); Mean Corpuscular Volume 88.1 fL (80.0-100.0); Neutrophils # (auto) 11.7 10 ^3/uL (1.6-8.6); Neutrophils % (auto) 84.5 % (37.0-80.0)
[2022-09-16] MEDS: LEVOTHYROXINE SODIUM 50 MCG TAB PO SCH (06:08)
[2022-09-16] MEDS: ARTIFICIAL TEARS 15ml EACHEYE SCH ×4 (06:08→21:18)
[2022-09-16 06:17] LABS: BUN/Creatinine Ratio 13.9 (10.0-20.0); Calcium 8.6 mg/dL (8.5-10.1); Potassium 3.3 mmol/L (3.5-5.1)
[2022-09-16 08:00] VITALS: BP 163/55
[2022-09-16] MEDS: Ensure Enlive Strawberry 8oz Bottle PO SCH ×3 (08:00→18:00)
[2022-09-16] MEDS: cefTRIAXone 1GM/50ML D5W 50 ML IV SCH (09:36)
[2022-09-16] MEDS: DOCUSATE ORAL LIQUID 100 MG/10 ML UD GT SCH (09:36)
[2022-09-16] MEDS: LISINOPRIL 20 MG TAB PO SCH (09:37)
[2022-09-16] MEDS: ASPirin-EC 81 mg tab PO SCH (09:37)
[2022-09-16] MEDS: MEMANTINE HCL 5 MG TAB PO SCH ×2 (09:38→21:18)
[2022-09-16] MEDS: ATORVASTATIN 20 MG TAB PO SCH (09:38)
[2022-09-16] MEDS: amLODIPine BESYLATE 5 MG TAB PO SCH (09:39)
[2022-09-16] MEDS: ENOXAPARIN SOD 40 MG/0.4 ML SYRINGE SC SCH (09:39)
[2022-09-16] MEDS: AZITHROMYCIN 500MG/ 250ML 250 ML IV SCH (11:29)
[2022-09-16 12:00] VITALS: BP 166/60
[2022-09-16] MEDS: SODIUM CHLORIDE 1 GM TAB PO SCH ×2 (14:18→21:37)
[2022-09-16 16:00] VITALS: BP 156/62
[2022-09-16] MEDS: ACETAMINOPHEN 325 MG TAB PO SCH (18:21)
[2022-09-16] MEDS: traMADol HCL 50 MG TAB PO PRN (21:17)
[2022-09-16 22:00] VITALS: BP 151/58
[2022-09-17 05:00] VITALS: BP 150/70
[2022-09-17 05:08] LABS: Basophils # (auto) 0.1 10 ^3/uL (0-0.2); Lymphocytes # (auto) 1.4 10 ^3/uL (0.4-5.4); Monocytes # (auto) 0.7 10 ^3/uL (0-1.3); Neutrophils # (auto) 12.2 10 ^3/uL (1.6-8.6); Red Cell Distribution Width 14.8 % (11.8-14.3)
[2022-09-17 05:09] LABS: Basophils % (auto) 0.5 % (0.0-2.0); Eosinophils # (auto) 0 10 ^3/uL (0-0.8); Eosinophils % (auto) 0.3 % (0.0-7.0); Hemoglobin 9.9 g/dL (12.2-16.2); Mean Corpuscular Hemoglobin 29.7 pg (28.0-32.0); Mean Corpuscular Hgb Conc. 34.2 g/dL (32.0-36.0); Mean Corpuscular Volume 86.8 fL (80.0-100.0); Monocytes % (auto) 4.5 % (0.0-12.0); Neutrophils % (auto) 84.7 % (37.0-80.0); Red Blood Cells 3.34 10^6/uL (4.0-5.20); White Blood Cell 14.4 10^3/uL (4.4-10.8)
[2022-09-17] MEDS: ACETAMINOPHEN 325 MG TAB PO SCH ×5 (05:26→23:54)
[2022-09-17] MEDS: LEVOTHYROXINE SODIUM 50 MCG TAB PO SCH (05:27)
[2022-09-17] MEDS: ARTIFICIAL TEARS 15ml EACHEYE SCH ×4 (05:27→21:55)
[2022-09-17 05:28] LABS: BUN/Creatinine Ratio 18.4 (10.0-20.0); Potassium 3.2 mmol/L (3.5-5.1)
[2022-09-17] MEDS: SODIUM CHLORIDE 1 GM TAB PO SCH ×3 (05:41→21:51)
[2022-09-17] MEDS: Ensure Enlive Strawberry 8oz Bottle PO SCH ×3 (08:00→17:58)
[2022-09-17] MEDS: cefTRIAXone 1GM/50ML D5W 50 ML IV SCH (09:56)
[2022-09-17] MEDS: DOCUSATE ORAL LIQUID 100 MG/10 ML UD GT SCH (09:56)
[2022-09-17] MEDS: ASPirin-EC 81 mg tab PO SCH (09:57)
[2022-09-17] MEDS: AZITHROMYCIN 500MG/ 250ML 250 ML IV SCH (09:57)
[2022-09-17] MEDS: MEMANTINE HCL 5 MG TAB PO SCH ×2 (09:57→21:51)
[2022-09-17] MEDS: LISINOPRIL 20 MG TAB PO SCH (09:58)
[2022-09-17] MEDS: ATORVASTATIN 20 MG TAB PO SCH (09:58)
[2022-09-17] MEDS: traMADol HCL 50 MG TAB PO PRN ×2 (09:58→21:51)
[2022-09-17] MEDS: amLODIPine BESYLATE 5 MG TAB PO SCH (09:59)
[2022-09-17] MEDS: ENOXAPARIN SOD 40 MG/0.4 ML SYRINGE SC SCH (09:59)
[2022-09-17] MEDS: LIDOCAINE 5% TOPICAL PATCH TOP SCH (09:59)
[2022-09-17] MEDS ORDERED: POTASSIUM EFFERVESENT TAB 25 MEQ PO ONE (10:45)
[2022-09-17 13:00] VITALS: BP 105/60
[2022-09-17] MEDS ORDERED: CEFEPIME 2 GM in SODIUM CHL 0.9% 50 ML IV ONE (14:00)
[2022-09-17] MEDS: MEROPENEM 2 GM in SODIUM CHL 0.9% 250 ML IV SCH (15:14)
[2022-09-17 17:26] VITALS: BP 147/60
[2022-09-17 21:56] VITALS: BP 126/51
[2022-09-17] MEDS ORDERED: CEFEPIME 2 GM in SODIUM CHL 0.9% 50 ML IV SCH (22:00)
[2022-09-18] VITALS (7 sets, daily range): BP systolic 120–142; BP diastolic 47–68
[2022-09-18] MEDS: MEROPENEM 2 GM in SODIUM CHL 0.9% 250 ML IV SCH ×2 (02:00→15:00)
[2022-09-18] MEDS: ARTIFICIAL TEARS 15ml EACHEYE SCH ×4 (06:00→21:31)
[2022-09-18] MEDS: ACETAMINOPHEN 325 MG TAB PO SCH ×4 (06:39→23:49)
[2022-09-18] MEDS: LEVOTHYROXINE SODIUM 50 MCG TAB PO SCH (06:40)
[2022-09-18] MEDS: traMADol HCL 50 MG TAB PO PRN ×2 (09:20→21:26)
[2022-09-18] MEDS: DOCUSATE ORAL LIQUID 100 MG/10 ML UD GT SCH (09:21)
[2022-09-18] MEDS: ASPirin-EC 81 mg tab PO SCH (09:23)
[2022-09-18] MEDS: FUROSEMIDE 20 MG/2 ML VIAL IV SCH (09:23)
[2022-09-18] MEDS: LISINOPRIL 20 MG TAB PO SCH (09:24)
[2022-09-18] MEDS: MEMANTINE HCL 5 MG TAB PO SCH ×2 (09:25→21:26)
[2022-09-18] MEDS: amLODIPine BESYLATE 5 MG TAB PO SCH (09:26)
[2022-09-18] MEDS: ATORVASTATIN 20 MG TAB PO SCH (09:27)
[2022-09-18] MEDS: SODIUM CHLORIDE 1 GM TAB PO SCH ×2 (09:31→21:26)
[2022-09-18] MEDS: POTASSIUM EFFERVESENT TAB 25 MEQ PO SCH (09:32)
[2022-09-18] MEDS: ENOXAPARIN SOD 40 MG/0.4 ML SYRINGE SC SCH (09:35)
[2022-09-18] MEDS: LIDOCAINE 5% TOPICAL PATCH TOP SCH (09:38)
[2022-09-18] MEDS: Ensure Enlive Strawberry 8oz Bottle PO SCH ×3 (09:42→17:42)
[2022-09-18] MEDS ORDERED: DOCUSATE ORAL LIQUID 100 MG/10 ML UD PO ONE (10:00)
[2022-09-18 13:22] LABS: Basophils # (auto) 0.1 10 ^3/uL (0-0.2); Basophils % (auto) 0.5 % (0.0-2.0); Eosinophils # (auto) 0.1 10 ^3/uL (0-0.8); Hematocrit 30.9 % (36.0-46.0); Monocytes # (auto) 0.8 10 ^3/uL (0-1.3)
[2022-09-18 13:23] LABS: Eosinophils % (auto) 0.6 % (0.0-7.0); Lymphocytes # (auto) 1.2 10 ^3/uL (0.4-5.4); Lymphocytes % (auto) 7.3 % (10.0-50.0); Mean Corpuscular Hemoglobin 28.7 pg (28.0-32.0); Mean Corpuscular Hgb Conc. 32.2 g/dL (32.0-36.0); Mean Corpuscular Volume 89.2 fL (80.0-100.0); Monocytes % (auto) 5.3 % (0.0-12.0); Neutrophils # (auto) 13.6 10 ^3/uL (1.6-8.6); Neutrophils % (auto) 86.3 % (37.0-80.0); Red Blood Cells 3.47 10^6/uL (4.0-5.20); Red Cell Distribution Width 14.9 % (11.8-14.3); White Blood Cell 15.8 10^3/uL (4.4-10.8)
[2022-09-18 13:46] LABS: Calcium 9.2 mg/dL (8.5-10.1); Potassium 4.2 mmol/L (3.5-5.1)
[2022-09-18 13:48] LABS: BUN/Creatinine Ratio 15.2 (10.0-20.0)
[2022-09-19] VITALS (7 sets, daily range): BP systolic 111–142; BP diastolic 47–71
[2022-09-19] MEDS: MEROPENEM 2 GM in SODIUM CHL 0.9% 250 ML IV SCH ×2 (02:07→14:50)
[2022-09-19 06:02] LABS: Calcium 9.3 mg/dL (8.5-10.1); Potassium 4.1 mmol/L (3.5-5.1)
[2022-09-19] MEDS: ACETAMINOPHEN 325 MG TAB PO SCH (06:02)
[2022-09-19] MEDS: LEVOTHYROXINE SODIUM 50 MCG TAB PO SCH (06:02)
[2022-09-19] MEDS: ARTIFICIAL TEARS 15ml EACHEYE SCH ×4 (06:06→21:24)
[2022-09-19 06:11] LABS: Basophils # (auto) 0.1 10 ^3/uL (0-0.2); Eosinophils # (auto) 0.1 10 ^3/uL (0-0.8); Hemoglobin 9.6 g/dL (12.2-16.2); Lymphocytes # (auto) 1.4 10 ^3/uL (0.4-5.4); Mean Corpuscular Hgb Conc. 33.3 g/dL (32.0-36.0); Monocytes # (auto) 0.6 10 ^3/uL (0-1.3); Neutrophils # (auto) 8.9 10 ^3/uL (1.6-8.6); White Blood Cell 11.1 10^3/uL (4.4-10.8)
[2022-09-19 06:16] LABS: Basophils % (auto) 0.5 % (0.0-2.0); Eosinophils % (auto) 0.8 % (0.0-7.0); Hematocrit 28.9 % (36.0-46.0); Mean Corpuscular Hemoglobin 29.3 pg (28.0-32.0); Mean Corpuscular Volume 87.9 fL (80.0-100.0); Monocytes % (auto) 5.4 % (0.0-12.0); Neutrophils % (auto) 80.3 % (37.0-80.0); Red Blood Cells 3.29 10^6/uL (4.0-5.20); Red Cell Distribution Width 14.9 % (11.8-14.3)
[2022-09-19] MEDS: LISINOPRIL 20 MG TAB PO SCH (09:49)
[2022-09-19] MEDS: FUROSEMIDE 20 MG/2 ML VIAL IV SCH (09:49)
[2022-09-19] MEDS: traMADol HCL 50 MG TAB PO PRN ×2 (09:50→21:20)
[2022-09-19] MEDS: ASPirin-EC 81 mg tab PO SCH (09:50)
[2022-09-19] MEDS: SODIUM CHLORIDE 1 GM TAB PO SCH ×3 (09:51→21:20)
[2022-09-19] MEDS: MEMANTINE HCL 5 MG TAB PO SCH ×2 (09:51→21:20)
[2022-09-19] MEDS: ATORVASTATIN 20 MG TAB PO SCH (09:52)
[2022-09-19] MEDS: amLODIPine BESYLATE 5 MG TAB PO SCH (09:53)
[2022-09-19] MEDS: POTASSIUM EFFERVESENT TAB 25 MEQ PO SCH (09:54)
[2022-09-19] MEDS: Ensure Enlive Strawberry 8oz Bottle PO SCH ×3 (09:54→17:50)
[2022-09-19] MEDS: DOCUSATE ORAL LIQUID 100 MG/10 ML UD PO SCH (09:54)
[2022-09-19] MEDS: ENOXAPARIN SOD 40 MG/0.4 ML SYRINGE SC SCH (09:55)
[2022-09-19] MEDS: LIDOCAINE 5% TOPICAL PATCH TOP SCH (10:00)
[2022-09-19] MEDS ORDERED: POLYETHYLENE GLYCOL 17 GM PWDR PO ONE (11:45)
[2022-09-19] MEDS ORDERED: BISACODYL 10 MG RECT SUPP PR ONE (11:45)
[2022-09-19] MEDS ORDERED: ACETAMINOPHEN 325 MG TAB PO SCH (12:00)
[2022-09-19] MEDS ORDERED: LACTULOSE 20Gm/30ML SOLN PO ONE (12:00)
[2022-09-19] MEDS: IBUPROFEN 400 MG TAB PO PRN ×2 (12:11→20:14)
[2022-09-19] MEDS ORDERED: ACETAMINOPHEN 325 MG TAB PO PRN (12:15)
[2022-09-19] MEDS: ACETAMINOPHEN 325 MG TAB PO PRN (15:04)
[2022-09-20] VITALS (7 sets, daily range): BP systolic 121–144; BP diastolic 53–71
[2022-09-20] MEDS: MEROPENEM 2 GM in SODIUM CHL 0.9% 250 ML IV SCH ×2 (00:42→14:00)
[2022-09-20] MEDS: LEVOTHYROXINE SODIUM 50 MCG TAB PO SCH (06:09)
[2022-09-20] MEDS: SODIUM CHLORIDE 1 GM TAB PO SCH ×3 (06:09→22:29)
[2022-09-20] MEDS: ARTIFICIAL TEARS 15ml EACHEYE SCH ×4 (06:12→22:26)
[2022-09-20 06:17] LABS: BUN/Creatinine Ratio 21.7 (10.0-20.0); Calcium 9.3 mg/dL (8.5-10.1); Potassium 3.9 mmol/L (3.5-5.1)
[2022-09-20] MEDS: POTASSIUM EFFERVESENT TAB 25 MEQ PO SCH (10:44)
[2022-09-20] MEDS: Ensure Enlive Strawberry 8oz Bottle PO SCH ×3 (10:45→18:20)
[2022-09-20] MEDS: MEMANTINE HCL 5 MG TAB PO SCH ×2 (10:46→22:24)
[2022-09-20] MEDS: traMADol HCL 50 MG TAB PO PRN (10:46)
[2022-09-20] MEDS: ASPirin-EC 81 mg tab PO SCH (10:47)
[2022-09-20] MEDS: LISINOPRIL 20 MG TAB PO SCH (10:48)
[2022-09-20] MEDS: ATORVASTATIN 20 MG TAB PO SCH (10:48)
[2022-09-20] MEDS: amLODIPine BESYLATE 5 MG TAB PO SCH (10:49)
[2022-09-20] MEDS: ENOXAPARIN SOD 40 MG/0.4 ML SYRINGE SC SCH (10:49)
[2022-09-20] MEDS: LIDOCAINE 5% TOPICAL PATCH TOP SCH (10:49)
[2022-09-20] MEDS: DOCUSATE ORAL LIQUID 100 MG/10 ML UD PO SCH (10:50)
[2022-09-20] MEDS: FUROSEMIDE 20 MG/2 ML VIAL IV SCH (10:50)
[2022-09-20] MEDS: IBUPROFEN 400 MG TAB PO PRN (12:13)
[2022-09-20] MEDS: ACETAMINOPHEN 325 MG TAB PO PRN (16:59)
[2022-09-21] VITALS (7 sets, daily range): BP systolic 138–156; BP diastolic 54–71
[2022-09-21] MEDS: MEROPENEM 2 GM in SODIUM CHL 0.9% 250 ML IV SCH ×2 (03:06→14:17)
[2022-09-21] MEDS: ACETAMINOPHEN 325 MG TAB PO PRN ×4 (03:12→21:11)
[2022-09-21] MEDS: SODIUM CHLORIDE 1 GM TAB PO SCH ×3 (06:34→21:11)
[2022-09-21] MEDS: traMADol HCL 50 MG TAB PO PRN (06:34)
[2022-09-21] MEDS: LEVOTHYROXINE SODIUM 50 MCG TAB PO SCH (06:34)
[2022-09-21] MEDS: ARTIFICIAL TEARS 15ml EACHEYE SCH ×5 (06:37→21:16)
[2022-09-21 06:56] LABS: BUN/Creatinine Ratio 21.1 (10.0-20.0); Calcium 9.1 mg/dL (8.5-10.1)
[2022-09-21] MEDS: Ensure Enlive Strawberry 8oz Bottle PO SCH ×3 (08:47→18:28)
[2022-09-21] MEDS: LISINOPRIL 20 MG TAB PO SCH (09:16)
[2022-09-21] MEDS: DOCUSATE ORAL LIQUID 100 MG/10 ML UD PO SCH (09:16)
[2022-09-21] MEDS: FUROSEMIDE 20 MG/2 ML VIAL IV SCH (09:16)
[2022-09-21] MEDS: MEMANTINE HCL 5 MG TAB PO SCH ×2 (09:16→21:11)
[2022-09-21] MEDS: ATORVASTATIN 20 MG TAB PO SCH (09:16)
[2022-09-21] MEDS: amLODIPine BESYLATE 5 MG TAB PO SCH (09:17)
[2022-09-21] MEDS: POTASSIUM EFFERVESENT TAB 25 MEQ PO SCH (09:17)
[2022-09-21] MEDS: LIDOCAINE 5% TOPICAL PATCH TOP SCH (09:18)
[2022-09-21] MEDS: ASPirin-EC 81 mg tab PO SCH (09:18)
[2022-09-21] MEDS: ENOXAPARIN SOD 40 MG/0.4 ML SYRINGE SC SCH (09:18)
[2022-09-22] MEDS: ACETAMINOPHEN 325 MG TAB PO PRN ×3 (02:27→16:34)
[2022-09-22] MEDS: MEROPENEM 2 GM in SODIUM CHL 0.9% 250 ML IV SCH ×2 (02:27→15:53)
[2022-09-22 05:00] VITALS: BP 157/53
[2022-09-22] MEDS: LEVOTHYROXINE SODIUM 50 MCG TAB PO SCH (06:12)
[2022-09-22] MEDS: SODIUM CHLORIDE 1 GM TAB PO SCH ×2 (06:12→15:53)
[2022-09-22] MEDS: ARTIFICIAL TEARS 15ml EACHEYE SCH ×4 (06:13→22:00)
[2022-09-22 06:43] LABS: BUN/Creatinine Ratio 19.8 (10.0-20.0); Calcium 9.9 mg/dL (8.5-10.1); Potassium 3.8 mmol/L (3.5-5.1)
[2022-09-22 08:15] VITALS: BP 171/51
[2022-09-22] MEDS: Ensure Enlive Strawberry 8oz Bottle PO SCH ×3 (08:27→18:30)
[2022-09-22] MEDS: traMADol HCL 50 MG TAB PO PRN ×2 (08:29→21:55)
[2022-09-22 09:00] VITALS: BP 171/51
[2022-09-22] MEDS: ASPirin-EC 81 mg tab PO SCH (10:43)
[2022-09-22] MEDS: POTASSIUM EFFERVESENT TAB 25 MEQ PO SCH (10:44)
[2022-09-22] MEDS: MEMANTINE HCL 5 MG TAB PO SCH ×2 (10:44→21:55)
[2022-09-22] MEDS: amLODIPine BESYLATE 5 MG TAB PO SCH (10:45)
[2022-09-22] MEDS: LISINOPRIL 20 MG TAB PO SCH (10:46)
[2022-09-22] MEDS: LIDOCAINE 5% TOPICAL PATCH TOP SCH (10:46)
[2022-09-22] MEDS: ENOXAPARIN SOD 40 MG/0.4 ML SYRINGE SC SCH (10:46)
[2022-09-22] MEDS: DOCUSATE ORAL LIQUID 100 MG/10 ML UD PO SCH (10:46)
[2022-09-22] MEDS: ATORVASTATIN 20 MG TAB PO SCH (10:46)
[2022-09-22] MEDS: FUROSEMIDE 20 MG/2 ML VIAL IV SCH (10:47)
[2022-09-22 13:00] VITALS: BP 124/50
[2022-09-22] MEDS: UREA 15gm PO Powder PKG PO SCH (15:53)
[2022-09-22] MEDS: ERGOCALCIFEROL 50,000 UNIT(1.25MG) CAP PO SCH (15:54)
[2022-09-22 17:06] VITALS: BP 136/52
[2022-09-22 22:00] VITALS: BP 143/53
[2022-09-23] MEDS: MEROPENEM 2 GM in SODIUM CHL 0.9% 250 ML IV SCH ×2 (02:37→12:46)
[2022-09-23 05:00] VITALS: BP 149/70
[2022-09-23] MEDS: ACETAMINOPHEN 325 MG TAB PO PRN ×2 (06:23→10:34)
[2022-09-23] MEDS: ARTIFICIAL TEARS 15ml EACHEYE SCH ×2 (06:24→11:35)
[2022-09-23] MEDS: LEVOTHYROXINE SODIUM 50 MCG TAB PO SCH (06:24)
[2022-09-23 06:36] LABS: Calcium 9.5 mg/dL (8.5-10.1); Potassium 3.6 mmol/L (3.5-5.1)
[2022-09-23 08:30] VITALS: BP 143/57
[2022-09-23] MEDS: Ensure Enlive Strawberry 8oz Bottle PO SCH ×2 (08:30→12:30)
[2022-09-23 09:05] VITALS: BP 143/57
[2022-09-23] MEDS: ATORVASTATIN 20 MG TAB PO SCH (09:07)
[2022-09-23] MEDS: DOCUSATE ORAL LIQUID 100 MG/10 ML UD PO SCH (09:07)
[2022-09-23] MEDS: LIDOCAINE 5% TOPICAL PATCH TOP SCH (09:07)
[2022-09-23] MEDS: amLODIPine BESYLATE 5 MG TAB PO SCH (09:10)
[2022-09-23] MEDS: ENOXAPARIN SOD 40 MG/0.4 ML SYRINGE SC SCH (09:11)
[2022-09-23] MEDS: POTASSIUM EFFERVESENT TAB 25 MEQ PO SCH (09:11)
[2022-09-23] MEDS: LISINOPRIL 20 MG TAB PO SCH (09:12)
[2022-09-23] MEDS: UREA 15gm PO Powder PKG PO SCH (09:13)
[2022-09-23] MEDS: ASPirin-EC 81 mg tab PO SCH (09:13)
[2022-09-23] MEDS: MEMANTINE HCL 5 MG TAB PO SCH (09:13)
[2022-09-23] MEDS: traMADol HCL 50 MG TAB PO PRN (11:34)
[2022-09-23 13:00] VITALS: BP 126/59
[2022-09-23] MEDS ORDERED: LISI20TA56 PO ×2 (13:49)
[2022-09-23 14:15] VITALS: BP 126/59
== END 2022-09-23 14:51 | disposition home health service (06) | DRG 643 ==
LOC: ER 12:55 → EDBD 12:55 → TELE 19:03 → TELE-CENTR 23:03
PROVIDERS: ADMIT Nurse Practitioner Family; ATTEND Internal Medicine
PROC: 05HC33Z Insertion of Infusion Device into Left Basilic Vein, Percutaneous Approach (ICD-10-PCS; principal; 2022-09-18)
PROC: B54NZZA Ultrasonography of Left Upper Extremity Veins, Guidance (ICD-10-PCS; 2022-09-18)
DX: E22.2 Syndrome of inappropriate secretion of antidiuretic hormone (principal); E43 Unspecified severe protein-calorie malnutrition; F02.83 Dementia in other diseases classified elsewhere, unspecified severity, with mood disturbance; R78.81 Bacteremia; M96.1 Postlaminectomy syndrome, not elsewhere classified; M54.40 Lumbago with sciatica, unspecified side; D72.829 Elevated white blood cell count, unspecified; E86.0 Dehydration; I10 Essential (primary) hypertension; K59.00 Constipation, unspecified; D64.9 Anemia, unspecified; E03.9 Hypothyroidism, unspecified; I25.10 Atherosclerotic heart disease of native coronary artery without angina pectoris; B96.5 Pseudomonas (aeruginosa) (mallei) (pseudomallei) as the cause of diseases classified elsewhere; F32.A Depression, unspecified; G89.29 Other chronic pain; M54.16 Radiculopathy, lumbar region; G30.9 Alzheimer's disease, unspecified; R07.89 Other chest pain; E87.6 Hypokalemia; Z68.21 Body mass index [BMI] 21.0-21.9, adult; Z82.0 Family history of epilepsy and other diseases of the nervous system; Z83.3 Family history of diabetes mellitus; Z87.891 Personal history of nicotine dependence; Z88.2 Allergy status to sulfonamides
CPT/HCPCS: 36415; 71045; 72158; 73501; 74176; 80048; 80053; 81001; 82607; 83605; 83735; 83930; 83935; 84484; 85025; 85652; 86141; 87040; 87077; 87081; 87186; 93005; 93306; 96365; 96368; 96379; 97110; 97116; 97163; 97530; G0378; J0696; J3480